=== PATIENT | female | born 1985 | race Caucasian/White ===

== ENCOUNTER → 2020-07-08 09:03 | Outpatient (CLI) | payer OTHER, SELFPAY ==
--- NOTE | 2020-07-08 09:09 | US_ITS ---
STUDY: RENAL ULTRASOUND - COMPLETE REASON FOR EXAM: Female, 34 years old. flank pain TECHNIQUE: Ultrasound evaluation of the kidneys was performed with real-time and static tran-scale imaging. COMPARISON: None. FINDINGS: RIGHT KIDNEY: Normal location of the right kidney, which is normal in size. The right kidney measures 9.6 cm. There is a normal cortex of the right kidney. The renal cortex measures 1.5 cm. There is no right renal mass or cyst. There are no right renal calculi. There is no right hydronephrosis. DISTAL RIGHT URETER: There is non-visualization of the distal right ureter. There is no demonstrated right ureterovesical junction calculus. There is a visualized right ureteral jet. LEFT KIDNEY: Normal location of the left kidney, which is normal in size. The left kidney measures 9.1 cm. There is a normal cortex of the left kidney. The renal cortex measures 1.8 cm. There is no left renal mass or cyst. There are no left renal calculi. There is no left hydronephrosis. DISTAL LEFT URETER: There is non-visualization of the distal left ureter. There is no demonstrated left ureterovesical junction calculus. There is a visualized left ureteral jet. BLADDER: The distended urinary bladder has a volume of 38 ml. The empty urinary bladder has a volume of ml. There is a normal wall thickness of the distended urinary bladder. There is no demonstrated mass within the urinary bladder. There are no demonstrated bladder calculi. US/Kidney and Bladder IMPRESSION: Normal ultrasound of the kidneys and urinary bladder. Electronically Signed: Federico Spivey MD at 10:32 EDT Tel , Service support ,
== END ==
PROVIDERS: PCP Nurse Practitioner; Referring Provider Nurse Practitioner; Visit Provider Nurse Practitioner
DX: R10.9 Unspecified abdominal pain (principal)
CPT/HCPCS: 76770

== ENCOUNTER → 2022-05-26 | Outpatient (CLI) | payer OTHER, SELFPAY ==
[2022-05-26 10:04] LABS: Absolute Lymphocyte Count 1.44 X10^3/uL (0.83-4.51); Absolute Neutrophil Count 1.8 X10^3/uL (2.0-7.7); Basophil# 0.03 X10^3/uL; Basophil% 0.8 % (0-1); Eosinophil# 0.07 X10^3/uL; Eosinophils% 1.8 % (0-5); Hematocrit 36.3 % (37-47); Hemoglobin 12.9 g/dL (12.0-15.0); Lymphocyte # 1.44 X10^3/ul (0.83-4.51); Lymphocyte % 37.6 % (19-41); Mean Corp Hgb Conc 35.5 g/dL (32-36); Mean Corpuscular Hgb 32.6 pg (27.0-32.0); Mean Corpuscular Volume 91.7 fL (81-99); Mean Platelet Vol. 9.4 fl (6.2-12.0); Monocyte# 0.44 X10^3/uL; Monocyte% 11.5 % (0-10); NRBC Flagged by Analyzer 0 % (0-5); Neutrophil # 1.84 X10^3/uL (2.7-7.7); Platelet Count 251 K/mm3 (150-450); RBC Distribution Width CV 11.9 % (11.6-14.6); RBC Distribution Width SD 39.9 fl (35.1-43.9); Red Blood Count 3.96 M/mm3 (4.2-5.4); White Blood Count 3.8 K/mm3 (4.4-11.0)
[2022-05-26 10:32] LABS: ALB/GLOB Ratio 1.1 RATIO (0.9-2.4); AST(SGOT) 18 U/L (15-37); Alanine Aminotransfer ALT/SGPT 17 U/L (13-56); Alkaline Phosphatase 38 U/L (45-117); Amylase 79 U/L (25-115); Anion Gap 5 (5-15); BUN 7 mg/dL (7-18); BUN/Creat Ratio 9.9 RATIO (10-20); Bilirubin, Direct 0.32 mg/dL (0.00-0.30); Chloride 107 mmol/L (98-107); EST Glomerular Filtration Rate 101 mL/min (>60); Est Glom Filt Rate - Afr Amer 122 mL/min (>60); Globulin 3.6 g/dL (2.2-4.2); Glucose 94 mg/dL (74-106); Lipase 159 U/L (73-393); Potassium 4.3 mmol/L (3.5-5.1); Protein, Total 7.6 g/dL (6.4-8.2); Sodium Level 138 mmol/L (136-145)
== END | disposition home or self-care (01) ==
LOC: LAB 08:54
PROVIDERS: PCP Nurse Practitioner Family; Visit Provider Nurse Practitioner Family
DX: D72.819 Decreased white blood cell count, unspecified (principal)
CPT/HCPCS: 36415; 80053; 82150; 82248; 83690; 85025

== ENCOUNTER → 2022-06-03 | Outpatient (CLI) | payer OTHER, SELFPAY ==
--- NOTE | 2022-06-03 08:51 | US_ITS ---
STUDY: ABDOMINAL ULTRASOUND - RIGHT UPPER QUADRANT REASON FOR VISIT: Female, 36 years old Pt has elevated liver enzymes, abnormal blood chemistry TECHNIQUE: Ultrasound evaluation of the right upper quadrant was performed with real-time and static hoskins-scale imaging. TECHNICAL QUALITY: Adequate. COMPARISON: None. FINDINGS: Liver: The liver measures 14.6 cm. There is normal echogenicity of the liver. The bile ducts are within normal limits. There is hepatic color flow. The direction of portal flow is hepatopetal. There is no demonstrated mass lesion. Gallbladder: Normal distended gallbladder. The gallbladder wall measures 1 mm. There is a negative sonographic Mosqueda''s sign. There is no pericholecystic fluid. There are no gallstones. Common Bile Duct (C.B.D.): The common bile duct measures 3.0 mm. Pancreas: Normal size of the head, body and tail of the pancreas. There is normal echogenicity of the pancreas. There is no demonstrated pancreatic mass or cyst. Right Kidney: Normal size of the right kidney. The right kidney measures 9.4 cm x 5.6 cm x 3.9 cm. Normal renal cortex. The right cortex measures 1.0 cm. There is no demonstrated renal mass or cyst. There is no right hydronephrosis. US/Abdomen Limited IMPRESSION: Normal right upper quadrant ultrasound examination. Electronically Signed: Roverto Mills MD at 9:36 EDT ,
== END | disposition home or self-care (01) ==
LOC: US 08:49
PROVIDERS: PCP Nurse Practitioner Family; Referring Provider Nurse Practitioner Family; Visit Provider Nurse Practitioner Family
DX: R74.8 Abnormal levels of other serum enzymes (principal)
CPT/HCPCS: 76705

== ENCOUNTER → 2024-12-07 | Outpatient (CLI) | payer OTHER, SELFPAY ==
[2024-12-14 19:08] LABS: ACCA 25 units (0-90); ALCA 16 units (0-60); AMCA 45 units (0-100); Cytoplasmic Ab (C-ANCA) <1:20 titer (Neg:<1:20); Immunoglobulin A 244 mg/dL (87-352); Immunoglobulin E < 2 IU/mL (6-495); Immunoglobulin G 1271 mg/dL (586-1602); Immunoglobulin M 138 mg/dL (26-217); Perinuclear Ab (P-ANCA) <1:20 titer (Neg:<1:20); gASCA 17 units (0-50)
== END | disposition home or self-care (01) ==
PROVIDERS: PCP Nurse Practitioner Family
DX: K62.89 Other specified diseases of anus and rectum (principal); K59.00 Constipation, unspecified
CPT/HCPCS: 36415; 82784; 82785; 83516; 86036; 86037; 86671

== ENCOUNTER → 2024-12-10 | Outpatient (CLI) | payer OTHER, SELFPAY ==
[2024-12-13 08:09] LABS: Calprotectin, Stool 26 ug/g (0-120)
[2024-12-14 07:07] LABS: Pancreatic Elastase, Fecal > 800 (>200)
== END | disposition home or self-care (01) ==
LOC: LAB 14:23
PROVIDERS: PCP Nurse Practitioner Family
DX: K62.89 Other specified diseases of anus and rectum (principal); K59.00 Constipation, unspecified; K58.9 Irritable bowel syndrome, unspecified; E80.6 Other disorders of bilirubin metabolism
CPT/HCPCS: 82653; 83993; 87177; 87209; 87329; 87506

== ENCOUNTER → 2024-12-20 | Outpatient (CLI) | payer OTHER, SELFPAY ==
--- NOTE | 2024-12-20 09:05 | US_ITS ---
PROCEDURE: ABD LIMITED W/ ELASTOGRAPHY (USABDLELPARO), 12/20/2024 REASON FOR EXAM: ELEVATED BILIRUBIN COMPARISON: 06/03/2022; note only the images are available for review, the report is not available at the time of dictation. TECHNIQUE: Grayscale and color Doppler imaging of the right upper quadrant was performed. Wyle S-shear wave elastography was performed for non-invasive assessment of liver tissue stiffness. FINDINGS: Liver: Echogenic. 15.2 cm in length. Gallbladder: No visualized stones, sludge, wall thickening or pericholecystic fluid. Reportedly, sonographic Mosqueda's was negative. Biliary tree: Unremarkable. CBD measures 3 mm. Pancreas: Partially obscured by shadowing bowel gas, grossly unremarkable as visualized. Right kidney: Unremarkable. 9.6 cm in length. Other: No visualized free fluid. Hepatic elastography: Number of measurements: 5. US probe: CA1-7A. EQI median: 5.6 kPa EQI median velocity: 1.37 m/s IQR/Med: 17.9% (kPa) and 8.0% (m/s). If the IQR/Med is IQR/median >30% (for kPa) or >15% in m/s, the variance in the measurements is a large and the accuracy of the measurement may be in question. US/ABD Limited w/ Elastography IMPRESSION: 1. Echogenic appearance of the hepatic parenchyma suggests hepatic steatosis. Correlate for clinical and laboratory evidence of chronic liver disease. 2. Liver stiffness is 5.6 kPa. Per the below 2020 SRU criteria, this rules out compensated advanced chronic liver disease in the absence of other known clinical signs. If there are known clinical signs, furth er testing may be needed for confirmation. 3. Additional description as above. Assessment is per the Update to the SRU Liver Elastography Consensus Statement (2020) Note that the above assessment of liver fibrosis is vendor-neutral and intended for use in fibrosis related to viral etiologies and non-alcoholic fatty-liver disease (NAFLD); in causes other than viral hepat itis and NAFLD, the cutoff values are currently not well established. In some patients with NAFLD, the cutoff values for cACLD may be lower (7-9 kPa). Note also that in the setting of elevated LFTs, nonfasting or vascular congestion, the stage of lifer fibrosis may be overestimated. Previous SRU reference values: <1.37 m/s (5.7kPa): No to mild fibrosis 1.37 m/s - 2.2 m/s: Moderate to severe fibrosis >2.2 m/s (15kPa): Significant fibrosis / cirrhosis Reading Location: [id number]
== END | disposition home or self-care (01) ==
PROVIDERS: PCP Nurse Practitioner Family
DX: K62.89 Other specified diseases of anus and rectum (principal); K59.00 Constipation, unspecified; E80.6 Other disorders of bilirubin metabolism
CPT/HCPCS: 76705; 76981

== ENCOUNTER 2025-03-14 10:49 | Day surgery (SDC) | payer OTHER, SELFPAY ==
--- NOTE | 2025-03-14 10:56 | PCM.PRE.AN2 ---
ASA Classification* ASA Classification ASA Classification: 2 Assessment & Plan Anesthesia* Anesthesia Assessment Anesthesia Assessment: Discussed sedation and/or anesthesia options, risks, benefits, and alternatives with patient/parents/legal guardian/POA. Questions invited. The patient/parents/legal guardian/POA seems to understand and agrees to proceed with anesthesia plan. Reviewed the physical assessment, medical history, allergy history and patient home medications list prior to surgery/procedure/anesthetic and documented any changes. Performed airway and anesthesia risk assessments. Anesthesia Type Anesthesia Type: MAC Anesthesia Focused Assessment* Airway Assessment Mouth opens: >3 cm Mallampati Score: II Labs Anesthesia Preop lab: CBC WBC 3.8 K/mm3 (4.4-11.0) L 05/26/22 08:59 05/26/22 RBC 3.96 M/mm3 (4.2-5.4) L 05/26/22 08:59 05/26/22 Hgb 12.9 g/dL (12.0-15.0) 05/26/22 08:59 05/26/22 Hct 36.3 % (37-47) L 05/26/22 08:59 05/26/22 Plt Count 251 K/mm3 (150-450) 05/26/22 08:59 05/26/22 CHEMISTRY Potassium 4.3 mmol/L (3.5-5.1) 05/26/22 08:59 05/26/22 Sodium 138 mmol/L (136-145) 05/26/22 08:59 05/26/22 BUN 7 mg/dL (7-18) 05/26/22 08:59 05/26/22 Creatinine 0.70 mg/dL (0.55-1.02) 05/26/22 08:59 05/26/22 Glucose 94 mg/dL (74-106) 05/26/22 08:59 05/26/22 TSH 1.32 uIU/mL (0.358-3.74) 01/18/14 09:57 01/18/14 COAG Pre-Assessment Diagnosis/Proposed Procedure Planned Operative Procedure(s): CSCOPE Anesthesia History Anesthesia History - geoscience technician: Anesthesia History - geoscience technician Hx Hospitalization No 03/12/25 10:55 Any Problems With Anesthesia No 03/12/25 10:55 Cholinesterase deficiency No 03/12/25 10:55 You/Your Family Experience No 03/12/25 10:55 fever (hyperthermia) with Relationship Recent Exposure to Contagious Disease Does patient have nerve No 03/12/25 10:55 stimulator Patient instructed to have device shut off --Does patient have Pacemaker or ICD? When Was Last Pacemaker Check QUESTION #4 FULL TEXT: You/Your Family Experience fever (hyperthermia) with Anesthesia Last Oral Intake Last Oral intake: Last Oral Intake NPO since Meds taken in AM with sips of water? Meds patient instructed to take am of surgery PONV PONV - geoscience technician: PONV - geoscience technician Female Yes 03/12/25 10:55 HX of Motion Sickness No 03/12/25 10:55 HX of N/V After Surgery No 03/12/25 10:55 Non-Smoker Yes 03/12/25 10:55 Duration of Surgery greater No 03/12/25 10:55 than 60 minutes Number of Risk Factors 2 03/12/25 10:55 PONV Score Moderate Risk 03/12/25 10:55 Respiratory Assessment Respiratory Assessment - geoscience technician: Respiratory Tract Infection Hx - geoscience technician Hx Respiratory Tract Infection No 03/12/25 10:55 STOP Sleep Apnea STOP Sleep Apnea - geoscience technician: STOP Sleep Apnea - geoscience technician Hx Hypertension No 03/12/25 10:55 Hx Sleep Apnea No 03/12/25 10:55 CPAP BIPAP Do you snore loudly (louder No 03/12/25 10:55 than talking or can be heard Do you often feel tired/ No 03/12/25 10:55 fatigued/ sleepy during daytime? Has anyone observed you stop No 03/12/25 10:55 breathing during sleep? STOP Results Negative 03/12/25 10:55 QUESTION #5 FULL TEXT : Do you snore loudly (louder than talking or can be heard through closed doors)? Tobacco Use History Tobacco Use History - geoscience technician: Tobacco Use History - geoscience technician Tobacco Use Smoking Status Former smoker 03/12/25 10:55 Hx Tobacco Use No 03/12/25 10:55 Years Smoking Packs Smoked per Day Smoking Cessation Date was Yes - quit smoking within 15 03/12/25 10:55 within the last 15 years years Hx Smoking Cessation Date Hx Smoking Cessation No 03/12/25 10:55 Counseling Hematologic Medial History Hematologic Hx - geoscience technician: Hematologic Medical Hx - tableau administrator Hx of Blood Transfusion No 03/12/25 10:55 Hx of Transfusion in last 3 No 03/12/25 10:55 Months Date of Last Transfusion (if within last 3 months) Ever experience any problems No 03/12/25 10:55 with transfusion(s)? Specify any problems Hx of Preganancy in last 3 No 03/12/25 10:55 Months Nurse Filling Out Transfusion DSCHRIBER 03/12/25 10:55 & Questions: Date: 03/12/25 03/12/25 10:55 Time: 10:56 03/12/25 10:55 Patient unable to answer at this time (ie. confused, unrespo /Reproduction History /Reproductive History - geoscience technician: /Reproductive Hx- geoscience technician Hx Now No 03/12/25 10:55 Gestational Age (in weeks): EDC: Hx Hx Para Hx Section SAB No 03/12/25 10:55 PFSH Medical History Anxiety Marijuana use Alcohol use Fatty liver Back pain Migraine headache Heartburn Former smoker Rectal pain Constipation Acne Allergy/AdvReac Type Severity Reaction Status Date / Time No Known Allergies Allergy Verified 03/12/25 10:54 Family History Grandmother Cancer pancreatic Heart disease Mother COPD (chronic obstructive pulmonary disease) Grandfather Heart disease Parkinson disease Surgical History Status post LASIK surgery S/P tonsillectomy Social History Smoking Status: Former smoker alcohol intake: current details: once per week substance use type: does not use what type of physical activity do you participate in: walking Review of Systems (Anesthesia) ROS Narrative System reviewed and no additional complaints, except as documented.
[2025-03-14 11:44] LABS: Internal QC Validated? YES +Cl - CLEAR BKGD; Pregnancy, Urine Negative Negative
[2025-03-14 11:47] VITALS: BP 99/86; PULSE 88; RESP 16; TEMP 37.2; O2SAT 100; BMI 19.1
[2025-03-14] MEDS: Lactated Ringers 1,000 ML 15 ML IV (11:54)
--- NOTE | 2025-03-14 12:00 | COLBX_PTH ---
PATIENT: ALISHA VIDALES LOC: EN U#:[id number] AGE/SX: 39/F ROOM: RE03/14/[address]: Dr. Chilango Chandler DO : 1985 BED: DIS: 03/14/2025 SPEC #: [id number] RECD: 03/14/25 14:25 STATUS: BHUPINDER REIrina #: [id number] MARZENA: 03/14/25 12:[address]: Chilango Chandler DEPT: SURGICAL PATHOLOGY RECD BY: David Hinds ENTERED: 03/14/25 14:45 SP TYPE: COLON BX OT DR: Arianna Ayala, SONG LYRICIST-C Tissues: A - Ileum, NOS B - COLON BIOPSY Procedures: Surgery Specimen Level IV HEADER OPERATION: Colonoscopy, biopsy PRE-OP DIAGNOSIS: Rectal pain, constipation, hyperbilirubinemia TISSUE SUBMITTED: A- Terminal ileum biopsy, B- Random colonic biopsy MICROSCOPIC DIAGNOSIS A. Terminal ileum, biopsy: No specific pathologic change. B. Colon, random, biopsy: No specific pathologic change. The histologic features of microscopic colitis are not demonstrated. MICROSCOPIC DESCRIPTION Slides are reviewed. GROSS DESCRIPTION Received in 2 formalin containers labeled the patient's name and date of . Designated as: A. Terminal ileum BX is a 0.5 cm phan tissue fragment. Entirely submitted in 1 cassette. B. Random colonic BX are 6 hpan tissue fragments, 0.4 cm to 0.6 cm. Entirely submitted in 1 cassette. [facility] [place] CPT:67889c5
--- NOTE | 2025-03-14 12:08 | HP.PCM_ITS ---
[facility] - General General Date of Admission: 03/14/25 Date of Service: 03/14/25 Chief Complaint: rectal pain and change in bowels HPI Narrative ALISHA VIDALES, is a 39 F who presents with the Chief Complaint: rectal pain and change in bowels She has complaints of intermittent sharp stabbing pains in her rectum for the last 2 years. She denies knowing cause or correlation of pain symptom to specific dietary intake. Denies rectal intercourse. She alternates between constipation and diarrhea, stating the longest interval between BMs has been 2 days. She reports a family history of psoriasis only, no other autoimmune diseases. She's had a positive SHADI result in 2020, 1:80, but no specific workup regarding this result. She has also had increasing hyperbilirubinemia, without further investigation. She states heartburn is controlled by dietary modification. She denies difficulty chewing and swallowing, heartburn, reflux, nausea, emesis, abdominal pain, bloating, hematochezia, and melena. [facility] Medical History Anxiety Marijuana use Alcohol use Fatty liver Back pain Migraine headache Heartburn Former smoker Rectal pain Constipation Acne Home Medications ?Medication ?Instructions ?Recorded ?Last Taken ?Type NK 03/14/25 Unknown History Allergy/AdvReac Type Severity Reaction Status Date / Time No Known Allergies Allergy Verified 03/14/25 11:45 Family History Grandmother Cancer pancreatic Heart disease Mother COPD (chronic obstructive pulmonary disease) Grandfather Heart disease Parkinson disease Surgical History Status post LASIK surgery S/P tonsillectomy Social History Smoking Status: Former smoker alcohol intake: current details: once per week substance use type: does not use what type of physical activity do you participate in: walking ROS Constitutional Constitutional: Denies fatigue, fever(s), poor appetite, weight gain or weight loss Gastrointestinal Gastrointestinal: Denies belching, bloating, change in bowel habits, change in stool character, chewing difficulty, coffee ground emesis, constipation, cramping, diarrhea, dyspepsia, dysphagia, early satiety, excessive flatus, fecal incontinence, heartburn, hematemesis, hematochezia, hemorrhoids, loose stools, melena, nausea, odynophagia, rectal bleeding, tenesmus, vomiting or weight changes Vital Signs Vital Signs Vital Signs: 03/14/25 11:47 03/14/25 11:47 Temperature 98.9 F Temperature Source Temporal Pulse Rate 88 Respiratory Rate 16 Respiratory Pattern Normal Blood Pressure 99/86 H Blood Pressure Mean 90 Blood Pressure Source Monitor Blood Pressure Position Sitting Blood Pressure Location Right Arm Pulse Ox 100 Oxygen Delivery Method Room Air Weight Weight: 111 lb 8.862 oz Body Mass Index (BMI) 19.1 Physical Exam Const alert, oriented x3, no apparent distress and healthy appearing General Appearance: cooperative GI normal to inspection, nondistended, normoactive bowel sounds, soft to palpation, non-tender and non-distended Percussion: normal to percussion Rectal Exam: deferred Results Lab / Micro Data Labs: Laboratory Results - last 24 hr 03/14/25 11:30: Urine Test Negative Assessment & Plan Assessment/Plan (1) Acid reflux: (2) Rectal pain: (3) Constipation: QUALIFIERS: Constipation type: unspecified constipation type Qualified Code(s): K59.00 - Constipation, unspecified PLAN: Assessment and Plan Assessment and Plan (1) Rectal pain: Status: Acute (2) Constipation: Status: Acute Qualifiers: Constipation type: unspecified constipation type Qualified Code(s): K59.00 - Constipation, unspecified (3) Hyperbilirubinemia: Status: Acute Orders: Orders IBD Expanded Profile 12/07/24 K59.00 - Constipation, unspecified, K62.89 - Other specified diseases of anus and rectum Immunoglobulins G/A/M/E 12/07/24 K59.00 - Constipation, unspecified, K62.89 - Other specified diseases of anus and rectum ANCA 12/07/24 K59.00 - Constipation, unspecified, K62.89 - Other specified diseases of anus and rectum Calprotectin, Stool 12/07/24 K59.00 - Constipation, unspecified, K62.89 - Other specified diseases of anus and rectum ABD Limited w/ Elastography 12/07/24 E80.6 - Other disorders of bilirubin metabolism, K59.00 - Constipation, unspecified, K62.89 - Other specified diseases of anus and rectum ENTERIC PATHOGEN PANEL STOOL 12/07/24 E80.6 - Other disorders of bilirubin metabolism, K58.9 - Irritable bowel syndrome, unspecified, K59.00 - Con stipation, unspecified, K62.89 - Other specified diseases of anus and rectum OVA+PARA w/Giardia EIA [id number] 12/07/24 E80.6 - Other disorders of bilirubin metabolism, K59.00 - Constipation, unspecified, K62.89 - Other specified diseases of anus and rectum Pancreatic Elastase, Fecal 12/07/24 E80.6 - Other disorders of bilirubin metabolism, K59.00 - Constipation, unspecified, K62.89 - Other specified diseases of anus and rectum Renetta VIDALES, is a 39 F who presents to the office today for establishment with [facility] for complaints of intermittent sharp stabbing pains in her rectum for the last 2 years. Differential diagnoses include: IBD, IBS-M, CIC, pelvic floor dysfunction, rectal tone dysfunction. Discussed care plan with her. * blood for IBD * stool for enteric, inflammation * liver US w/elastography for hyperbilirubinemia * schedule colonoscopy to visualize rectal vault * office FU to discuss test results
[2025-03-14 12:48] VITALS: BP 95/53; BP 99/86; PULSE 71; RESP 14; TEMP 36.6; O2SAT 99
--- NOTE | 2025-03-14 12:48 | OP.COLON_ITS ---
Patient Name: Zuleyma Borrero Procedure Date: 03/14/2025 12:11 PM Date of : 1985 Age: 39 Procedure: Colonoscopy Indications: Abdominal pain in the left lower quadrant, Obstipation, Rectal pain Providers: Chilango Chandler DO Referring MD: Faizan Alvarado Medicines: Monitored Anesthesia Care Patient Profile: This is a 39 year old female. Refer to note in patient chart for documentation of history and physical. Last Colonoscopy: none. The patient's first colonoscopy is today. Complications: No immediate complications. Procedure: Pre-Anesthesia Assessment: - Prior to the procedure, a History and Physical was performed, and patient medications and allergies were reviewed. The patient is competent. The risks and benefits of the procedure and the sedation options and risks were discussed with the patient. All questions were answered and informed consent was obtained. Patient identification and proposed procedure were verified by the physician in the pre-procedure area. Mental Status Examination: alert and oriented. Airway Examination: normal oropharyngeal airway and neck mobility. Respiratory Examination: clear to auscultation. CV Examination: normal. ASA Grade Assessment: II - A patient with mild systemic disease. After reviewing the risks and benefits, the patient was deemed in satisfactory condition to undergo the procedure. The anesthesia plan was to use monitored anesthesia care (MAC). Immediately prior to administration of medications, the patient was re-assessed for adequacy to receive sedatives. The heart rate, respiratory rate, oxygen saturations, blood pressure, adequacy of pulmonary ventilation, and response to care were monitored throughout the procedure. The physical status of the patient was re-assessed after the procedure. After I obtained informed consent, the scope was passed under direct vision. Throughout the procedure, the patient's blood pressure, pulse, and oxygen saturations were monitored continuously. The colonoscope was introduced through the anus and advanced to the terminal ileum. The colonoscopy was performed without difficulty. The patient tolerated the procedure well. The quality of the bowel preparation was adequate. The ileocecal valve, appendiceal orifice, and rectum were photographed. Scope In: 12:27:24 PM Scope Withdrawal Time 0 hours 8 minutes 15 seconds Scope Out: 12:40:45 PM Total Procedure Duration Time 0 hours 13 minutes 21 seconds Findings: The perianal and digital rectal examinations were normal. An area of mildly congested mucosa was found in the rectum, in the sigmoid colon and in the cecum. Biopsies were taken with a cold forceps for histology. Verification of patient identification for the specimen was done. Estimated blood loss was minimal. A patchy area of the distal ileum was congested. Biopsies were taken with a cold forceps for histology. Verification of patient identification for the specimen was done. Estimated blood loss was minimal. A 5 mm anal fissure was found in the anal canal. Impression: - Congested mucosa in the rectum, in the sigmoid colon and in the cecum. Biopsied. - Congested mucosa in the distal ileum. Biopsied. Recommendation: - Discharge patient to home. - Resume previous diet. - Continue present medications. - Await pathology results. - Repeat colonoscopy in 10 years for screening purposes. Procedure Code(s): --- Professional --- 52917, Colonoscopy, flexible; with biopsy, single or multiple CPT copyright 2021 [employer]. All rights reserved. The codes documented in this report are preliminary and upon psychology tech review may be revised to meet current compliance requirements. Chilango Chandler DO 03/14/2025 12:48:16 PM This report has been signed electronically. Number of Addenda: 0 Note Initiated On: 03/14/2025 12:11 PM
--- NOTE | 2025-03-14 12:49 | OP.CCLET_ITS ---
03/14/2025 Faizan Alvarado Re : Colonoscopy procedure for Zuleyma Borrero Dear Jamie This procedure was performed on March. My impressions and recommendations are as follows: Impressions : - Congested mucosa in the rectum, in the sigmoid colon and in the cecum. Biopsied. - Congested mucosa in the distal ileum. Biopsied. Recommendations : - Discharge patient to home. - Resume previous diet. - Continue present medications. - Await pathology results. - Repeat colonoscopy in 10 years for screening purposes. My findings are described in the full procedure note, which is enclosed. If I can be of further assistance, please feel free to contact me at . Sincerely, Chilango Chandler, 03/14/2025 12:48:16 PM This report has been signed electronically.
--- NOTE | 2025-03-14 12:49 | PCM.POST.ANE ---
Anesthesia: Postop Eval I Current Vital Signs Temperature: 98.4 F Pulse Rate: 16 Blood Pressure: 95/53 Respiratory Rate: 16 Pulse Ox: 100 Oxygen Delivery Method: Room Air Assessment Airway patent: Yes Spontaneous unlabored respirations: Yes Mental status: Awake and Calm nausea: No Vomiting: No Anesthesia Complication: No Fluid Hydration Crystalloid volume administer (ml): 400 Total IV fluid infused: 400 Progress Note Anesthesia document: Postop Eval 1 completed: Yes
[2025-03-14 12:50] VITALS: BP 105/64; BP 95/53; BP 99/86; PULSE 16; PULSE 68; RESP 14; RESP 16; TEMP 36.9; O2SAT 100
[2025-03-14 12:55] VITALS: BP 116/92; BP 99/86; PULSE 70; RESP 14; TEMP 36.6; O2SAT 100
[2025-03-14 13:03] VITALS: BP 99/86
--- NOTE | 2025-03-14 13:46 | PCM.POSTANE2 ---
Anesthesia Postop Eval I Sum Postop Eval Completion status Anesthesia document: Postop Eval 1 completed: Yes Anesthesia Postop Eval I Summary Anesthesia Postop Eval I Summary: Anesthesia Postop Eval I: Assessment Summary Airway patent Yes 03/14/25 12:50 [email or web address] Spontaneous unlabored Yes 03/14/25 12:50 [email or web address] respirations Mental status Awake,Calm 03/14/25 12:50 [email or web address] nausea No 03/14/25 12:50 [email or web address] Vomiting No 03/14/25 12:50 [email or web address] Anesthesia Postop Eval I: Fluid Summary Crystalloid volume administer 400 03/14/25 12:50 [email or web address] (ml) Colloids volume administered ( ml) Blood Product volume administered (ml) Total IV fluid infused 400 03/14/25 12:50 [email or web address] Anesthesia Postop Eval I: Summary Notes Anesthesia Complication No 03/14/25 12:50 [email or web address] Anesthesia Complication Comment: Post-operative progress note Anesthesia: Postop Eval II Evaluation Mental status: Awake Pain Level: 0 nausea: No Vomiting: No
== END 2025-03-14 13:15 | disposition home or self-care (01) ==
LOC: EN 10:54 → AC 11:21
PROVIDERS: Anesthesiology; PCP Nurse Practitioner Family; Referring Provider Nurse Practitioner Family; Visit Provider Internal Medicine Gastroenterology
PROC: 0DJD8ZZ Inspection of Lower Intestinal Tract, Via Natural or Artificial Opening Endoscopic (ICD-10-PCS; CPT 45378; principal; 2025-03-14 11:55)
DX: K60.2 Anal fissure, unspecified (principal); K59.00 Constipation, unspecified; K21.9 Gastro-esophageal reflux disease without esophagitis; K63.89 Other specified diseases of intestine; Z87.891 Personal history of nicotine dependence; E80.6 Other disorders of bilirubin metabolism
CPT/HCPCS: 45380; 81025; 88305; J2405